=== PATIENT | male | born 2000 | race Caucasian/White ===

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

== ENCOUNTER 2025-08-01 17:08 | Emergency (ER) | payer SELFPAY | END 2025-08-01 18:16 | disposition home or self-care (01) | LOC: ERS 17:08 | DX: H66.92 Otitis media, unspecified, left ear (principal) | CPT/HCPCS: 99282 ==